=== PATIENT | female | born 2005 | race Caucasian/White ===

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

== ENCOUNTER 2024-09-05 10:09 | Emergency (ER) | payer OTHER ==
[2024-09-05 10:21] VITALS: BP 128/69; PULSE 110; RESP 18; TEMP 97.7
--- NOTE | 2024-09-05 10:59 | ED ---
ENT HPI - General Chief complaint: ENT Stated complaint: cough Time Seen by Provider: 09/05/24 10:59 Source: patient, RN notes reviewed Mode of arrival: ambulatory Limitations: no limitations - History of Present Illness Initial comments: 18-year-old female with a past medical history significant of asthma presenting to the ER for evaluation of URI symptoms. Patient states throughout the past couple of days she has felt ill with a cough, congestion, right ear pain, sore throat and an upset stomach. She had first believed it was allergies and tried Benadryl without relief. She did try DayQuil with no relief. She also has used her prescribed inhaler and states it will work for about an hour to and then her cough will return. She denies any fevers, chills, body aches, nausea, vomiting, chest pain. She does admit to mild shortness of breath and wheezing with coughing. She denies any urinary complaints, diarrhea/constipation or p eripheral edema. No other complaints at this time. She does report her daughter is ill with an ear infection. - Related Data Home Medications Medication Instructions Recorded Confirmed Acetaminophen [Tylenol] 650 mg PO Q4H 10/10/23 10/10/23 Loratadine [Claritin] 10 mg PO DAILY 10/10/23 10/10/23 Omeprazole [PriLOSEC] 10 mg PO DAILY 10/10/23 10/10/23 Vit No.179/Iron/Folic 1 each PO DAILY 10/10/23 10/10/23 [ Tablet] Allergies Allergy/AdvReac Type Severity Reaction Status Date / Time petrolatum,white Allergy Rapid Verified 09/05/24 10:21 [From Petroleum Jelly] Heart Rate Review of Systems ROS Statement: Those systems with pertinent positive or pertinent negative responses have been documented in the HPI. ROS Other: All systems not noted in ROS Statement are negative. Past Medical History Past Medical History: Asthma History of Any Multi-Drug Resistant Organisms: None Reported Past Surgical History: Appendectomy Past Anesthesia/Blood Transfusion Reactions: No Reported Reaction Past Psychological History: No Psychological Hx Reported Smoking Status: Never smoker Past Alcohol Use History: None Reported Past Drug Use History: None Reported General Exam Limitations: no limitations General appearance: alert, in no apparent distress ENT exam: Present: normal exam, normal oropharynx (Mild erythema), mucous membranes moist, TM's normal bilaterally (No mastoid tenderness bilaterally) Neck exam: Present: normal inspection. Absent: tenderness, meningismus, lymphadenopathy Respiratory exam: Present: normal lung sounds bilaterally. Absent: respiratory distress, wheezes, rales, rhonchi, stridor Cardiovascular Exam: Present: regular rate, normal rhythm, normal heart sounds. Absent: systolic murmur, diastolic murmur, rubs, gallop, clicks GI/Abdominal exam: Present: soft, normal bowel sounds. Absent: distended, tenderness, guarding, rebound, rigid Neurological exam: Present: alert, oriented X3, CN II-XII intact Skin exam: Present: warm, dry, intact, normal color. Absent: rash Course Vital Signs 09/05/24 10:18 Temperature 97.7 F Pulse Rate 110 H Respiratory 18 Rate Blood Pressure 128/69 O2 Sat by Pulse 99 Oximetry Medical Decision Making - Medical Decision Making Was pt. sent in by a medical professional or institution (, PA, [employer], urgent care, hospital, or longterm...) When possible be specific @ -No Did you speak to anyone other than the patient for history (EMS, parent, family, police, friend...)? What history was obtained from this source @ -No Did you review nursing and triage notes (agree or disagree)? Why? @ -I reviewed and agree with nursing and triage notes Were old charts reviewed (outside hosp., previous admission, EMS record, old EKG, old radiological studies, urgent care reports/EKG's, longterm records)? Report findings @ -No old charts were reviewed Differential Diagnosis (chest pain, altered mental status, abdominal pain women, abdominal pain men, vaginal bleeding, weakness, fever, dyspnea, syncope, headache, dizziness, GI bleed, back pain, seizure, CVA, palpatations, mental health, musculoskeletal)? @ -COVID, RSV, influenza, viral sinusitis, pneumonia, strep pharyngitis, this list is not meant to be all-inclusive EKG interpreted by me (3pts min.). @ -None done X-rays interpreted by me (1pt min.). @ -None done CT interpreted by me (1pt min.). @ -None done U/S interpreted by me (1pt. min.). @ -None done What testing was considered but not performed or refused? (CT, X-rays, U/S, labs)? Why? @ -CXR considered but not performed as patient has clear lung sounds throughout all lung ny. What meds were considered but not given or refused? Why? @ -None Did you discuss the management of the patient with other professionals (professionals i.e. , PA, [employer], lab, RT, psych nurse, addiction social worker, officer lieutenant, teacher, strike operations officer, senior case manager)? Give summary @ -No Was smoking cessation discussed for >3mins.? @ -No Was critical care preformed (if so, how long)? @ -No Were there social determinants of health that impacted care today? How? (Homelessness, low income, unemployed, alcoholism, drug addiction, transportation, low edu. Level, literacy, decrease access to med. care, prison, rehab)? @ -No Was there de-escalation of care discussed even if they declined (Discuss DNR or withdrawal of care, Hospice)? DNR status @ -No What co-morbidities impacted this encounter? (DM, HTN, Smoking, COPD, CAD, Cancer, CVA, ARF, Chemo, Hep., AIDS, mental health diagnosis, sleep apnea, morbid obesity)? @ -None Was patient admitted / discharged? Hospital course, mention meds given and route, prescriptions, significant lab abnormalities, going to OR and other p ertinent info. @ -Discharge. 18-year-old female presented the ER for evaluation of URI symptoms. Upon rooming vitals were acceptable. Patient had no signs acute distress nontoxic-appearing. Influenza, RSV, COVID and strep negative. Patient received symptomatic treatment in the emergency department with ibuprofen, with improvement. Upon reevaluation, patient resting comfortably in exam room no signs of acute distress. Results discussed with patient, all questions answered. I advised [id number] ibuprofen and Tylenol for symptom control outpatient. Symptoms likely viral in nature. Strict return parameters discussed. Patient discharged stable condition. Patient verbally expressed understanding agreement care plan. Case discussed with ED attending, Dr. Walton. Undiagnosed new problem with uncertain prognosis? @ -No Drug Therapy requiring intensive monitoring for toxicity (Heparin, Nitro, Insulin, Cardizem)? @ -No Were any procedures done? @ -No Diagnosis/symptom? @ -Viral illness/acute viral sinusitis Acute, or Chronic, or Acute on Chronic? @ -Acute Uncomplicated (without systemic symptoms) or Complicated (systemic symptoms)? @ -Uncomplicated Side effects of treatment? @ -No Exacerbation, Progression, or Severe Exacerbation? @ -No Poses a threat to life or bodily function? How? (Chest pain, USA, ID, pneumonia, PE, COPD, DKA, ARF, appy, cholecystitis, CVA, Diverticulitis, Homicidal, Suicidal, threat to staff... and all critical care pts) @ -No - Lab Data Lab Results 09/05/24 09/05/24 Range/Units 10:23 10:23 Influenza Type A (PCR) Not Detected (Not Detectd) Influenza Type B (PCR) Not Detected (Not Detectd) RSV (PCR) Not Detected (Not Detectd) SARS-CoV-2 (PCR) Not Detected (Not Detectd) Group A Strep (PCR) NOT DETECTED (Not Detectd) Disposition Clinical Impression: Viral illness, Acute viral sinusitis Disposition: HOME SELF-CARE Condition: Stable Additional Instructions: Take [id number] ibuprofen and Tylenol for symptom control. Follow-up with PCP. Return to the ER for any new or worsening concerns. Is patient prescribed a controlled substance at d/c from ED?: No Referrals: Coy Kelly MD [Primary Care Provider] - 1-2 days Time of Disposition: 11:59
[2024-09-05] MEDS: IBUPROFEN 600 MG TAB PO STA (11:06)
[2024-09-05 11:15] LABS: Influenza A Not Detected (Not Detectd); Influenza B Not Detected (Not Detectd); RSV Not Detected (Not Detectd)
== END 2024-09-05 12:07 | disposition home or self-care (01) ==
LOC: EC 10:09
DX: J01.90 Acute sinusitis, unspecified (principal); B34.9 Viral infection, unspecified; Z88.8 Allergy status to other drugs, medicaments and biological substances
CPT/HCPCS: 87636; 87651; 99283